=== PATIENT | male | born 1990 | race Caucasian/White ===

== ENCOUNTER → 2022-10-07 08:18 | Outpatient (CLI) | payer BC, OTHER, SELFPAY ==
--- NOTE | ~2022-10-07 | MR_ITS ---
MRI of the right knee Clinical history: Injury Technique: Coronal proton density and proton density-weighted images, sagittal proton-density and T2 fat-sat images, and axial proton-density fat-saturated images were acquired. Findings: Anterior and posterior cruciate ligaments are intact. There is mild thickening and increase d signal of the fibular collateral ligament proximally. Iliotibial band and biceps femoris tendon are intact. Medial collateral ligament is intact. Popliteus tendon is intact. Medial and lateral menisci are intact, without evidence of tear. Articular cartilage is well preserved throughout the knee. Bone marrow signals are unremarkable. Extensor mechanism is intact. No joint effusion or Fitch's cyst. Impression: Low to moderate grade sprain of the fibular collateral ligament. Reviewed, dictated and finalized at location . Impression: Low to moderate grade sprain of the fibular collateral ligament.
== END ==
PROVIDERS: PCP Physician Assistant; Visit Provider Physician Assistant
DX: S83.421A Sprain of lateral collateral ligament of right knee, initial encounter (principal); X58.XXXA Exposure to other specified factors, initial encounter
CPT/HCPCS: 73721

== ENCOUNTER → 2023-03-23 11:36 | Outpatient (CLI) | payer BC, SELFPAY ==
--- NOTE | ~2023-03-23 | MR_ITS ---
MRI of the right knee Clinical history: Injury Technique: Coronal proton density and proton density-weighted images, sagittal proton-density and T2 fat-sat images, and axial proton-density fat-saturated images were acquired. COMPARISON: 10/07/2022 Findings: Anterior and posterior cruciate ligaments are intact. Medial collateral ligament and the la teral collateral ligament complex are intact. Popliteus tendon is intact. Medial and lateral menisci are intact, without evidence of tear. Articular cartilage is well preserved throughout the knee. Bone marrow signals are unremarkable. Extensor mechanism is intact. No joint effusion or Fitch's cyst. Impression: No significant abnormality seen. Reviewed, dictated and finalized at location . Impression: No significant abnormality seen.
== END ==
PROVIDERS: PCP Physician Assistant; Visit Provider Physician Assistant
DX: S89.91XD Unspecified injury of right lower leg, subsequent encounter (principal); X58.XXXD Exposure to other specified factors, subsequent encounter
CPT/HCPCS: 73721